=== PATIENT | female | born 1980 | race Caucasian/White ===

== ENCOUNTER 2017-03-18 05:27 | Inpatient (IN) | payer OTHER ==
[2017-03-18] MEDS ORDERED: Scopolamine 1.5 MG Transdermal Patch TOP SCH (06:00)
[2017-03-18] MEDS ORDERED: Celecoxib 200 MG Cap PO ONE (06:00)
[2017-03-18] MEDS ORDERED: Acetaminophen 500 MG Tab PO ONE (06:00)
[2017-03-18] MEDS ORDERED: Gabapentin 300 MG Cap PO ONE (06:00)
[2017-03-18] MEDS ORDERED: Levofloxacin/Dextrose 5%-Water 500 MG in Premix Bag 1 BAG IV ONE (07:00)
[2017-03-18] MEDS ORDERED: Levofloxacin 500 MG/20 ML SDV ONE (07:05)
[2017-03-18] MEDS: Dextrose 5%-Lactated Ringers 1,000 ML IV SCH ×3 (07:09→22:59)
[2017-03-18] MEDS ORDERED: Neostigmine Methylsulfate 1 MG/ML 5 ML Syringe ONE (07:10)
[2017-03-18] MEDS ORDERED: Dexamethasone 4 MG/ML SDV ONE (07:10)
[2017-03-18] MEDS ORDERED: fentaNYL 250 MCG/5 ML SDV ONE ×2 (07:10→08:12)
[2017-03-18] MEDS ORDERED: Ondansetron 4 MG/2 ML SDV ONE (07:10)
[2017-03-18] MEDS ORDERED: Propofol 200 MG/20 ML SDV ONE (07:10)
[2017-03-18] MEDS ORDERED: Rocuronium 50 MG/5 ML Vial ONE ×2 (07:10→09:17)
[2017-03-18] MEDS ORDERED: Succinylcholine/Normal Saline 200 MG/10 ML Syringe ONE ×2 (07:10→09:17)
[2017-03-18] MEDS ORDERED: Ropivacaine 60 ML, Dexamethasone 8 MG, EPINEPHrine 0.4 MG, Sodium Chloride 0.9% 17.6 ML NERVRT SCH ×4 (08:00)
[2017-03-18] MEDS ORDERED: Lidocaine 2% 100 MG/5 ML Syringe IVPUSH ONE (08:00)
[2017-03-18] MEDS ORDERED: Ketamine 500 MG/5 ML MDV IV SCH (08:00)
[2017-03-18] MEDS ORDERED: Labetalol 20 MG/4 ML Syringe ONE (08:38)
[2017-03-18] MEDS ORDERED: Ondansetron 4 MG/2 ML SDV IVPUSH ONE (10:41)
[2017-03-18] MEDS: Lidocaine 0.4%/D5W 2 GM/500 ML BAG IV SCH (11:25)
[2017-03-18] MEDS ORDERED: hydrOXYzine HCl 50 MG/ML SDV IM PRN (11:53)
[2017-03-18] MEDS ORDERED: Labetalol 20 MG/4 ML Syringe IVPUSH PRN (11:53)
[2017-03-18] MEDS ORDERED: Ondansetron 4 MG/2 ML SDV IVPUSH PRN (11:53)
[2017-03-18] MEDS ORDERED: Metoclopramide 10 MG/2 ML SDV IVPUSH PRN (11:53)
[2017-03-18] MEDS ORDERED: diphenhydrAMINE 50 MG/ML SDV IVPUSH PRN (11:53)
[2017-03-18] MEDS ORDERED: hydrOXYzine HCl 100 MG/2 ML SDV IM PRN (12:12)
[2017-03-18] MEDS ORDERED: Pantoprazole 40 MG Vial IVPUSH SCH (14:00)
[2017-03-18] MEDS: Acetaminophen Soln 650 MG/20.3 ML UD Cup PO SCH ×2 (14:45→19:46)
[2017-03-18] MEDS: SCOPOLAMINE PATCH CHECK TOP SCH (14:45)
[2017-03-18] MEDS: Gabapentin 250 MG/5 ML Solution ML 470 ML Bottle PO SCH ×2 (14:45→21:02)
[2017-03-18] MEDS ORDERED: MVI, Adult with Vitamin K 10 ML, Thiamine 200 MG, Chromium/Copper/Mang/Selen/Zn 1 ML in... IV SCH ×4 (16:00)
[2017-03-18] MEDS: Heparin Sodium 5,000 Units/ML Vial SUBCUT SCH (17:23)
[2017-03-19] MEDS: Lidocaine 0.4%/D5W 2 GM/500 ML BAG IV SCH (00:27)
[2017-03-19] MEDS: Acetaminophen Soln 650 MG/20.3 ML UD Cup PO SCH ×4 (01:42→20:05)
[2017-03-19] MEDS ORDERED: Iohexol 647 MG/ML 50 ML SDV PO SCH (04:30)
[2017-03-19] MEDS: Dextrose 5%-Lactated Ringers 1,000 ML IV SCH (05:05)
[2017-03-19] MEDS: Heparin Sodium 5,000 Units/ML Vial SUBCUT SCH ×2 (05:05→17:30)
[2017-03-19] MEDS: Levofloxacin/Dextrose 5%-Water 500 MG in Premix Bag 1 BAG IV SCH (08:58)
[2017-03-19] MEDS: Celecoxib 200 MG Cap PO SCH (08:59)
[2017-03-19] MEDS: Gabapentin 250 MG/5 ML Solution ML 470 ML Bottle PO SCH ×3 (09:00→20:05)
[2017-03-19] MEDS: SCOPOLAMINE PATCH CHECK TOP SCH (09:01)
[2017-03-19] MEDS: Docusate Sodium 100 MG Cap PO SCH (20:06)
[2017-03-20] MEDS: Acetaminophen Soln 650 MG/20.3 ML UD Cup PO SCH ×2 (04:06→07:56)
[2017-03-20] MEDS: Heparin Sodium 5,000 Units/ML Vial SUBCUT SCH (06:12)
[2017-03-20 07:15] VITALS: BP 143/85
[2017-03-20] MEDS: Levofloxacin/Dextrose 5%-Water 500 MG in Premix Bag 1 BAG IV SCH (07:45)
[2017-03-20] MEDS: Gabapentin 250 MG/5 ML Solution ML 470 ML Bottle PO SCH (08:00)
[2017-03-20] MEDS: Celecoxib 200 MG Cap PO SCH (08:00)
[2017-03-20] MEDS: SCOPOLAMINE PATCH CHECK TOP SCH (08:01)
[2017-03-20] MEDS: Docusate Sodium 100 MG Cap PO SCH (08:05)
[2017-03-20] MEDS ORDERED: Cyanocobalamin (Vitamin B12) 1,000 MCG/ML SDV IM ONE (09:00)
[2017-03-20] MEDS ORDERED: Magnesium Hydroxide 400 MG/5 ML Susp 30 ML Cup PO ONE (10:30)
--- NOTE | 2017-03-21 08:30 | PN ---
DATE OF SERVICE: 03/19/2017 The patient is postop day 1 from a laparoscopic gastric bypass along with liver biopsy, partial gastrectomy, and an upper GI for dilation of the upper esophageal sphincter. Postoperatively, she has done well, tolerating diet fairly well, and we will advance up to a step-2 diet today. She tolerated the pain medication while at this point and does not require any narcotics. Urine output has been satisfactory. Plan will be to proceed to advance her diet today. Continue with her present medications. We will restart her Colace, which she takes chronically and she may be ready for discharge home tomorrow. Armani Kulkarni MD /[id number]
--- NOTE | 2017-03-21 09:52 | CR ---
UGI wo KUB HISTORY: eval RY GBP FINDINGS: After administration of oral contrast, upright views were obtained. Post operative changes gastric bypass. Surgical drains in place. No evidence for leak. Contrast passes freely into proxima l small bowel loops. IMPRESSION: No evidence for leak or obstruction.
--- NOTE | 2017-03-22 10:52 | DISCH ---
FINAL DIAGNOSES: 1. Morbid obesity. 2. Marked hepatomegaly. 3. Dense scarring around the proximal stomach secondary to previous placement of laparoscopic adjustable gastric band. 4. Strictured upper esophageal sphincter. 5. History of depression and generalized anxiety disorder. OPERATIVE PROCEDURE: Done on 03/18 was: 1. Laparoscopic Aneudy-en-Y gastric bypass, along with gastroenterostomy. 2. Liver biopsy. 3. Partial gastrectomy. 4. Upper GI endoscopy with dilation of upper esophageal sphincter. HOSPITAL COURSE: This is a 36-year-old female with longstanding morbid obesity. She previously had a laparoscopic band placed, which was removed and maureen last August. She has attempted other means of weight loss in the interim, including use of phentermine without significant satisfactory results and she therefore presented for gastric bypass at this time. This was done on admission, along with the above-noted procedures. Postoperatively, she had no major problems. She was managed with the enhanced recovery regimen without any postoperative narcotics. Tolerates step 2 diet. Followup will be with Gianna Torres in [facility] on 03/28. DISCHARGE MEDICATIONS: Include continuation of home medications other than the phentermine plus Tylenol 650 q.6 hours p.r.n. x6 days and then p.r.n. after that, and then gabapentin 300 mg p.o. t.i.d. x2 weeks.
--- NOTE | 2017-03-25 10:48 | OR ---
DATE OF PROCEDURE: 03/18/2017 PREOPERATIVE DIAGNOSIS: Morbid obesity. POSTOPERATIVE DIAGNOSES: 1. Morbid obesity. 2. Marked hepatomegaly. 3. Segment of stomach devascularized, status post dissection following previous laparoscopic gastric band removal. 4. Strictured upper esophageal sphincter. OPERATIVE PROCEDURE: Diagnostic laparoscopy with: 1. Laparoscopic Aneudy-en-Y gastric bypass with long limb gastroenterostomy (33427). 2. William-Cut needle liver biopsy (91040). 3. Partial gastrectomy (61689). 4. Upper GI endoscopy with dilation of upper esophageal sphincter (33695). ANESTHESIA: General. VOCATIONAL EDUCATION TEACHER: Gianna Torres PA-C and JOSELYN Jenkins student. INDICATION FOR PROCEDURE: This is a 36-year-old female with longstanding morbid obesity, presents with significant comorbidities. After preoperative evaluation and discussion, she wished to proceed with a gastric bypass procedure. Potential risks including bleeding, infection, leaks from various GI tract closures, problems with bowel obstruction over time, as well as possibility of cardiopulmonary, septic, or hemorrhagic complications leading to were discussed, and the patient wishes to proceed. NARRATIVE: The patient was taken to the room and after general endotracheal anesthesia was induced, a gastrointestinal balloon catheter was placed, along with the abdomen being prepped and draped. Under continuous ultrasound guidance, bilateral subcostal transversus abdominis plane blocks were placed with the standard solution. Following this then 15 cm inferior, 5 cm left of xiphoid process, transverse incision was made. The peritoneal cavity entered under direct vision with Optiview trocar inflated to 15 mmHg pressure with CO2. Laparoscope was then reinserted. No underlying trocar insertion site injuries were seen. Following this, 5 additional trocars were placed across the mid abdomen and general exploration undertaken. The patient was noted to have marked hepatomegaly with the liver being roughly 2 to 3 times normal liver grossly fatty infiltrated. William-Cut needle biopsies were taken from the left lobe of the liver, and minimal bleeding from biopsy sites was controlled with electrocautery. At this point, the omentum was divided in the midline up to the level of the transverse colon. This allowed identification of the small bowel to the ligament of Treitz. Small bowel was then traced out 200 cm distal to that point, was divided transversely with a ELMER stapler. Small bowel was then traced out an additional 200 cm, where the cyot-ae-vtpc enteroenterostomy was accomplished with internal firing of the Endo-ELMER 60 mm stapler. The common opening was closed transversely with the same stapler, angles anastomosed, and mesenteric defect approximated with some 0 Ethibond stitch, along with fibrin sealant. The divided end of the Aneudy limb was then from the mesentery for a few centimeters, which allowed an antecolic position of the Aneudy limb up to the level of the gastroesophageal junction without tension. At this point, attention was taken to the upper abdomen, the liver was retracted anteriorly, some adhesions between the liver and the stomach were taken down. The patient had a previously removed gastric band in that area. Eventually, the area was satisfactorily dissected. There was still some stomach present in the plane where one would be constructing the pouch in the area just below the angle of His. This was dissected away and was fairly ischemic in appearance following its dissection. At this point, a plane was established behind the stomach somewhat below the level of the previous band placement, and this allowed initial division of the stomach transversely at that level and then continued upward with primary black loads up to and through the angle of His. This pouch by definition at this point was still too large, but prior to that a safe plane at the area just below the esophagogastric junction was not was able to be established with this end of the stomach now present. This was easily trimmed down with additional black loads to create an appropriately sized pouch, measuring around 10 and 15 mm in size. This additional gastric resection specimen was also delivered from the field at this time. The anvil of a 25 mm EEA stapler was then attached to Chilo sump type tube. The latter was then brought down through the mouth and taken out through small opening of the gastric pouch. Despite numerous attempts and maneuvers, the anvil would not pass through the upper esophageal sphincter. Given this, at this point, upper GI endoscope was passed into the esophagus and down to the level of the gastric pouch, confirming adequate formation of that. The scope was then brought back up to just above the upper esophageal sphincter, which was somewhat narrowed and then a Bard gastrointestinal balloon catheter was centered across that area and inflated to 54-Yakut size. This was held in position for 1 minute, after which the balloon catheter was deflated and withdrawn. This then allowed pulling the Chilo sump type tube downward and the anvil coming through into the esophagus and into the gastric pouch without further difficulty. The divided Aneudy limb was then opened and main body of EEA stapler passed several centimeters into lumen of small bowel, brought up the anvil and united with it, thus creating the gastrojejunostomy. Upon removal of stapler, double donuts of mucosa were noted within it. The small bowel was closed off with a vascular staple line. Gastrojejunostomy was reinforced with some 3-0 Vicryl seromuscular stitch, along with fibrin sealant. Leak test was accomplished with injection of 120 mL of air in the gastric pouch while submerged with a cefoxitin-containing saline solution. No leaks were identified. At this point, one [place] drain was taken through the lateral left subcostal trocar site and placed adjacent to gastrojejunostomy and up into the splenic fossa. The trocars were removed and peritoneal cavity deflated. Incision was closed with 4-0 Vicryl skin stitch and drains affixed with some 2-0 silk stitch. The patient was taken to the recovery room in satisfactory condition. Physician medical research assistant, Gianna Torres, played an essential role in assisting in this case, helping to position the patient, retract structures as needed, as well as suturing and cutting the sutures when indicated. Her presence improved the patient's safety and decreased operative time. Armani Kulkarni MD /[id number]
== END 2017-03-20 10:20 | disposition home or self-care (01) | DRG 621 ==
LOC: JP.MS 05:27 → JP.SDS 05:27 → EDSTATUS 10:00 → JP.2SS 10:30
PROVIDERS: ADMIT Surgery; ATTEND Surgery
PROC: 0FB24ZX Excision of Left Lobe Liver, Percutaneous Endoscopic Approach, Diagnostic (ICD-10-PCS; principal; 2017-03-18)
PROC: 0D717ZZ Dilation of Upper Esophagus, Via Natural or Artificial Opening (ICD-10-PCS; principal; 2017-03-18)
PROC: 0D164ZA Bypass Stomach to Jejunum, Percutaneous Endoscopic Approach (ICD-10-PCS; principal; 2017-03-18)
PROC: 0DB64ZX Excision of Stomach, Percutaneous Endoscopic Approach, Diagnostic (ICD-10-PCS; principal; 2017-03-18)
DX: E66.01 Morbid (severe) obesity due to excess calories (principal); Z68.42 Body mass index [BMI] 45.0-49.9, adult; K21.9 Gastro-esophageal reflux disease without esophagitis; Z88.8 Allergy status to other drugs, medicaments and biological substances; R16.0 Hepatomegaly, not elsewhere classified; K22.2 Esophageal obstruction; K31.89 Other diseases of stomach and duodenum
CPT/HCPCS: 36415; 74240; 74240-26; 80053; 82728; 83735; 84100; 86850; 86900; 86901; 88307; 88312; 88313; 88342; A9270-GY; C9113; J0171; J1100; J1644; J1956; J2001; J2405; J2704; J2795; J3010; J3411; J3420; J7030; J7040; J7042; J7050; Q9967